=== PATIENT | female | born 1975 | race Caucasian/White ===

== ENCOUNTER 2018-11-19 21:04 | Emergency (ER) | payer OTHER ==
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
[2018-11-20 00:38] VITALS: BP 112/64
== END 2018-11-20 00:05 | disposition home or self-care (01) ==
LOC: ER 21:04
DX: M54.16 Radiculopathy, lumbar region (principal); M54.5 Low back pain; M79.605 Pain in left leg; G89.29 Other chronic pain; R20.0 Anesthesia of skin; W10.9XXA Fall (on) (from) unspecified stairs and steps, initial encounter
CPT/HCPCS: 72110; 99283